=== PATIENT | female | born 2000 | race Hispanic/Latino ===

== ENCOUNTER 2021-11-26 21:33 | Inpatient (IN) | payer OTHER, SELFPAY ==
[2021-11-26 22:25] VITALS: BMI 21.2
[2021-11-26] MEDS ORDERED: Carboprost 250 MCG/ML AMP IM PRN (23:12)
[2021-11-26] MEDS ORDERED: Promethazine HCl 25 MG/ML VIAL IM PRN (23:12)
[2021-11-26] MEDS ORDERED: Acetaminophen 500 MG TAB PO PRN (23:12)
[2021-11-26] MEDS ORDERED: hydrALAZINE 20 MG/ML VIAL SLOW IVP PRN (23:12)
[2021-11-26] MEDS ORDERED: Ondansetron PF 4 MG/2 ML Vial IVP PRN (23:12)
[2021-11-26] MEDS ORDERED: Lidocaine 1% (PF) 30 ML VIAL SC PRN (23:12)
[2021-11-26] MEDS ORDERED: Butorphanol Tartrate 1 MG/ML VIAL SLOW IVP PRN (23:12)
[2021-11-26] MEDS ORDERED: Misoprostol 200 MCG TAB PR PRN (23:12)
[2021-11-26] MEDS ORDERED: Diphenoxylate HCl/Atropine Tablet PO PRN (23:12)
[2021-11-26] MEDS ORDERED: Ibuprofen 800 MG TAB PO PRN (23:12)
[2021-11-26] MEDS ORDERED: Methylergonovine 0.2 MG/ML VIAL IM PRN (23:12)
[2021-11-26] MEDS ORDERED: NS w/ Oxytocin 30 units 500 ML IV SCH (23:30)
[2021-11-26] MEDS ORDERED: NS w/ Oxytocin 30 units 500 ML IVPB SCH (23:30)
[2021-11-26 23:42] LABS: Hemoglobin 10.2 g/dL (12.0-15.5); Mean Corpuscular HGB CONC 32.1 g/dL (32.0-36.0); Mean Corpuscular Hemoglobin 27.1 pg (27.0-33.0); Mean Corpuscular Volume 84.4 fl (81.6-98.3); Platelet Count 167 10x3/uL (150-450); RBC Distribution Width 13.1 % (11.5-14.5); Red Blood Cell (RBC) Count 3.77 10x6/uL (3.90-5.03); White Blood Cell (WBC) Count 11.1 10x3/uL (3.5-10.5)
[2021-11-26] MEDS: Lactated Ringer's 1,000 ML IV SCH (23:45)
[2021-11-27 00:10] LABS: HBSAg Index 0.17 S/CO (0-0.99); Hep B Surf Ag Non-Reactive S/CO (NonReactive); Syphilis Antibody Nonreactive (Nonreactive); Syphilis Antibody Index 0.05 S/CO (<1.00 Non-Reactive)
[2021-11-27] MEDS: Lactated Ringer's 1,000 ML IV SCH ×2 (04:01→06:43)
[2021-11-27] MEDS ORDERED: Fentanyl 2 mcg/Bup 0.1% Cadd 100 ML ONE ×2 (05:14→13:40)
[2021-11-27 05:23] LABS: SARS-CoV-2 NAA Rapid Test Not Detected (NotDetected)
[2021-11-27] MEDS ORDERED: diphenhydrAMINE 50 MG/ML VIAL IVP PRN (06:06)
[2021-11-27] MEDS ORDERED: Promethazine HCl 25 MG/ML VIAL IM PRN (06:06)
[2021-11-27] MEDS ORDERED: Hydrocerin (Eucerin) Cream 120 gm Jar TOP PRN (06:06)
[2021-11-27] MEDS ORDERED: ePHEDrine Sulfate 50 MG/10 ML VIAL SLOW IVP PRN (06:06)
[2021-11-27] MEDS ORDERED: Naloxone HCl 0.4 mg/ml Vial IVP PRN ×2 (06:06)
[2021-11-27] MEDS ORDERED: Lactated Ringer's 500 ML IV PRN (06:06)
[2021-11-27] MEDS ORDERED: Acetaminophen 325 MG TAB PO PRN (06:06)
[2021-11-27] MEDS ORDERED: Ondansetron PF 4 MG/2 ML Vial IVP PRN (06:06)
[2021-11-27] MEDS ORDERED: Fentanyl 2 mcg/Bupivacaine 0.1% Cassette 100 ML EPIDURAL SCH (06:15)
[2021-11-27] MEDS ORDERED: Communication Order-Pharmacy FS SCH (06:15)
[2021-11-27] MEDS ORDERED: Preparation H Ointment 28 GM TUBE PR PRN (17:35)
[2021-11-27] MEDS ORDERED: Bisacodyl 10 MG SUPP PR PRN (17:35)
[2021-11-27] MEDS ORDERED: Boostrix 0.5 ML (Tdap) VIAL IM ONE (17:35)
[2021-11-27] MEDS ORDERED: diphenhydrAMINE 25 MG CAP PO PRN (17:35)
[2021-11-27] MEDS ORDERED: Milk Of Magnesia 30 ML UDCUP PO PRN (17:35)
[2021-11-27] MEDS ORDERED: Lanolin Ointment 7 GM TUBE TOP PRN (17:35)
[2021-11-27] MEDS ORDERED: HYDROcodone/Acetaminophen 5/325 mg Tablet PO PRN (17:35)
[2021-11-27] MEDS ORDERED: Benzocaine-Menthol 82.5 ML CAN TOP PRN (17:35)
[2021-11-27] MEDS ORDERED: Ibuprofen 600 MG TAB PO SCH (18:00)
[2021-11-27] MEDS ORDERED: NS w/ Oxytocin 30 units 500 ML ONE (18:08)
[2021-11-27] MEDS: Docusate Calcium (SURFAK) 240 MG CAP PO SCH (21:25)
[2021-11-27] MEDS: Ibuprofen 600 MG TAB PO SCH (21:25)
[2021-11-28] MEDS: Ibuprofen 600 MG TAB PO SCH ×4 (04:59→21:20)
[2021-11-28] MEDS: Ferrous Sulfate 325 MG TAB PO SCH ×2 (08:36→15:25)
[2021-11-28] MEDS: Prenatal Vitamin 1 TAB PO SCH (08:43)
[2021-11-28] MEDS: Docusate Calcium (SURFAK) 240 MG CAP PO SCH ×2 (08:43→21:20)
[2021-11-29] MEDS: Ibuprofen 600 MG TAB PO SCH ×3 (05:00→18:37)
[2021-11-29] MEDS: Docusate Calcium (SURFAK) 240 MG CAP PO SCH (10:32)
[2021-11-29] MEDS: Prenatal Vitamin 1 TAB PO SCH (10:32)
[2021-11-29] MEDS: Ferrous Sulfate 325 MG TAB PO SCH ×2 (10:33→18:38)
[2021-11-29 23:00] VITALS: BP 114/59; TEMP 98.1
== END 2021-11-29 23:30 | disposition home or self-care (01) | DRG 807 ==
LOC: CSHLD 21:33 → CSHPP 11-27 18:40
PROVIDERS: ADMIT Student in an Organized Health Care Education/Training Program; ATTEND Student in an Organized Health Care Education/Training Program
PROC: 10E0XZZ Delivery of Products of Conception, External Approach (ICD-10-PCS; principal; 2021-11-27)
PROC: 10907ZC Drainage of Amniotic Fluid, Therapeutic from Products of Conception, Via Natural or Artificial Opening (ICD-10-PCS; 2021-11-27)
PROC: 3E0P7VZ Introduction of Hormone into Female Reproductive, Via Natural or Artificial Opening (ICD-10-PCS; 2021-11-27)
PROC: 3E033VJ Introduction of Other Hormone into Peripheral Vein, Percutaneous Approach (ICD-10-PCS; 2021-11-27)
DX: O41.03X0 Oligohydramnios, third trimester, not applicable or unspecified (principal); Z37.0 Single live birth; Z20.822 Contact with and (suspected) exposure to COVID-19; Z3A.37 37 weeks gestation of pregnancy; O36.5930 Maternal care for other known or suspected poor fetal growth, third trimester, not applicable or unspecified; R63.6 Underweight; O75.89 Other specified complications of labor and delivery
CPT/HCPCS: 36415; 51702; 85027; 86780; 86850; 86900; 86901; 87340; J0595; J2590; J7120; U0002

== ENCOUNTER 2021-12-10 19:40 | Inpatient (IN) | payer MEDICAID, SELFPAY ==
[2021-12-10] MEDS ORDERED: Morphine 4 MG/ML VIAL ONE ×3 (20:42→22:27)
[2021-12-10 20:53] LABS: Hemoglobin 11.4 g/dL (12.0-15.5); Mean Corpuscular HGB CONC 30.9 g/dL (32.0-36.0); Mean Corpuscular Hemoglobin 26.7 pg (27.0-33.0); Mean Corpuscular Volume 86.4 fl (81.6-98.3); Mean Platelet Volume 11.3 fl (7.4-10.4); Platelet Count 664 10x3/uL (150-450); RBC Distribution Width 13.6 % (11.5-14.5); Red Blood Cell (RBC) Count 4.27 10x6/uL (3.90-5.03); White Blood Cell (WBC) Count 21.5 10x3/uL (3.5-10.5)
[2021-12-10 21:04] LABS: ALT (SGPT) 353 U/L (8-55); AST (SGOT) 351 U/L (5-34); Albumin 4.3 g/dL (3.5-5.0); Alkaline Phosphatase 788 U/L (40-110); Anion Gap 17 mmol/L (10-20); BUN (Urea Nitrogen) 7 mg/dL (7.0-18.7); Bilirubin, Total 0.6 mg/dL (0.2-1.2); Calc. Creatinine Clearance 0 mL/min (70-130); Calcium 9.5 mg/dL (7.8-10.44); Carbon Dioxide 25 mmol/L (22-29); Chloride 104 mmol/L (98-107); Glucose 184 mg/dL (70-105); Potassium 4.1 mmol/L (3.5-5.1); Protein, Total 8.3 g/dL (6.0-8.3); Sodium 142 mmol/L (136-145)
[2021-12-10 21:17] LABS: MDiff Complete? YES; Manual Diff?? YES
[2021-12-10 21:30] LABS: Band 8 % (5-11); Eosinophils 1 % (0-10); Lipase 15532 U/L (8-78); Lymphocytes 10 % (21-51); Monocytes 3 % (0-10); Neutrophil 77 % (42-75); Reactive Lymphocytes 1 % (0-10)
[2021-12-10 21:31] LABS: Platelet Morphology Comment Appears Increased
[2021-12-10 21:32] LABS: Toxic Granulation SLIGHT
[2021-12-10] MEDS ORDERED: Ondansetron PF 4 MG/2 ML Vial ONE (22:34)
[2021-12-10] MEDS ORDERED: Piperacillin/Tazobactam 3.375 GM VIAL ONE (23:07)
[2021-12-11] MEDS ORDERED: Piperacillin/Tazobactam 3.375 GM in Sodium Chloride 0.9% 100 ML IVPB SCH (00:15)
[2021-12-11 00:25] LABS: SARS-CoV-2 NAA Rapid Test DETECTED (NotDetected)
[2021-12-11] MEDS ORDERED: Lactated Ringer's 1,000 ML IV SCH (00:30)
[2021-12-11 00:50] VITALS: BMI 18.5
[2021-12-11 01:13] LABS: Magnesium 2.1 mg/dL (1.6-2.6)
[2021-12-11] MEDS: Lactated Ringer's 1,000 ML IV SCH ×4 (01:20→17:35)
[2021-12-11 04:37] LABS: ALT (SGPT) 220 U/L (8-55); AST (SGOT) 151 U/L (5-34); Albumin 3.2 g/dL (3.5-5.0); Alkaline Phosphatase 541 U/L (40-110); Anion Gap 13 mmol/L (10-20); BUN (Urea Nitrogen) 6 mg/dL (7.0-18.7); Bilirubin, Total 0.5 mg/dL (0.2-1.2); Calc. Creatinine Clearance 106 mL/min (70-130); Calcium 8.6 mg/dL (7.8-10.44); Carbon Dioxide 23 mmol/L (22-29); Chloride 107 mmol/L (98-107); Globulin 3.6 g/dL (2.4-3.5); Glucose 136 mg/dL (70-105); Potassium 4.2 mmol/L (3.5-5.1); Protein, Total 6.8 g/dL (6.0-8.3); Sodium 139 mmol/L (136-145)
[2021-12-11 04:52] LABS: Lipase 3324 U/L (8-78)
[2021-12-11 04:58] LABS: Hemoglobin 10.7 g/dL (12.0-15.5); Mean Corpuscular HGB CONC 31.8 g/dL (32.0-36.0); Mean Corpuscular Hemoglobin 26.9 pg (27.0-33.0); Mean Corpuscular Volume 84.7 fl (81.6-98.3); Mean Platelet Volume 11.3 fl (7.4-10.4); Platelet Count 520 10x3/uL (150-450); RBC Distribution Width 13.7 % (11.5-14.5); Red Blood Cell (RBC) Count 3.98 10x6/uL (3.90-5.03); White Blood Cell (WBC) Count 23.3 10x3/uL (3.5-10.5)
[2021-12-11 05:43] LABS: MDiff Complete? YES; Manual Diff?? YES
[2021-12-11 05:46] LABS: Band 17 % (5-11); Lymphocytes 1 % (21-51); Metamyelocyte 1 % (0-0); Monocytes 3 % (0-10); Neutrophil 78 % (42-75)
[2021-12-11] MEDS: Piperacillin/Tazobactam 3.375 GM in Sodium Chloride 0.9% 100 ML IVPB SCH ×3 (05:46→20:24)
[2021-12-11 05:47] LABS: Giant Platelets SLIGHT
[2021-12-11] MEDS: Morphine 4 MG/ML VIAL SLOW IVP PRN (07:35)
[2021-12-11] MEDS: Enoxaparin Sodium 40 MG/0.4 ML SYRINGE SC SCH (09:43)
[2021-12-11] MEDS ORDERED: Ketorolac Tromethamine 30 MG/ML VIAL IVP SCH (10:00)
[2021-12-11] MEDS ORDERED: Ondansetron PF 4 MG/2 ML Vial IVP PRN (11:55)
[2021-12-11] MEDS ORDERED: Indomethacin 50 MG SUPP ONE (14:33)
[2021-12-11] MEDS ORDERED: Iopamidol 15 ML ONE (14:33)
[2021-12-11] MEDS ORDERED: Lidocaine 1% PF 5 ML VIAL ONE (15:03)
[2021-12-11] MEDS ORDERED: Ondansetron PF 4 MG/2 ML Vial ONE (15:03)
[2021-12-11] MEDS ORDERED: Succinylcholine 200 MG/10 ml SYRINGE FS ONE (15:03)
[2021-12-11] MEDS ORDERED: Fentanyl 100 MCG/2 ML VIAL ONE (15:03)
[2021-12-11] MEDS ORDERED: Dexamethasone 4 mg/ml Vial ONE (15:03)
[2021-12-11] MEDS ORDERED: PROPOFOL 20 ML ONE (15:03)
[2021-12-12] MEDS: Piperacillin/Tazobactam 3.375 GM in Sodium Chloride 0.9% 100 ML IVPB SCH ×3 (04:40→20:50)
[2021-12-12 05:06] LABS: #Eosinphils 0.1 10x3/uL (0.0-0.5); #Monocytes 0.9 10x3/uL (0.0-1.1); #Neutrophils 10.9 10x3/uL (1.5-8.4); %Basophils 0.1 % (0.0-2.0); %Eosinophils 0.4 % (0.0-6.0); %Lymphocytes 12.7 % (18.0-47.0); %Monocytes 6.4 % (0.0-10.0); %Neutrophils 79.9 % (40.0-75.0); Hemoglobin 8.4 g/dL (12.0-15.5); Mean Corpuscular HGB CONC 31.3 g/dL (32.0-36.0); Mean Corpuscular Hemoglobin 26.6 pg (27.0-33.0); Mean Corpuscular Volume 84.8 fl (81.6-98.3); Mean Platelet Volume 11.2 fl (7.4-10.4); Platelet Count 424 10x3/uL (150-450); RBC Distribution Width 13.8 % (11.5-14.5); Red Blood Cell (RBC) Count 3.16 10x6/uL (3.90-5.03); White Blood Cell (WBC) Count 13.7 10x3/uL (3.5-10.5)
[2021-12-12 05:25] LABS: ALT (SGPT) 103 U/L (8-55); AST (SGOT) 40 U/L (5-34); Albumin 2.7 g/dL (3.5-5.0); Alkaline Phosphatase 365 U/L (40-110); Anion Gap 13 mmol/L (10-20); BUN (Urea Nitrogen) 4 mg/dL (7.0-18.7); Bilirubin, Total 0.4 mg/dL (0.2-1.2); CRP (Inflammatory) 8.93 mg/dL (= or < 0.5); Calc. Creatinine Clearance 112 mL/min (70-130); Carbon Dioxide 24 mmol/L (22-29); Chloride 107 mmol/L (98-107); Globulin 2.7 g/dL (2.4-3.5); Glucose 90 mg/dL (70-105); Potassium 3.7 mmol/L (3.5-5.1); Protein, Total 5.4 g/dL (6.0-8.3); Sodium 140 mmol/L (136-145)
[2021-12-12] MEDS: Lactated Ringer's 1,000 ML IV SCH ×4 (06:43→18:16)
[2021-12-12] MEDS ORDERED: Fentanyl 250 MCG/5 ML VIAL ONE (08:43)
[2021-12-12] MEDS ORDERED: PROPOFOL 20 ML ONE (08:44)
[2021-12-12] MEDS ORDERED: Rocuronium Bromide 10 MG/ML (10ML VIAL) ONE (08:48)
[2021-12-12] MEDS ORDERED: Dexamethasone 4 mg/ml Vial ONE ×2 (09:11→09:24)
[2021-12-12] MEDS ORDERED: Ondansetron PF 4 MG/2 ML Vial ONE (09:11)
[2021-12-12] MEDS ORDERED: Ketorolac Tromethamine 15 MG/ML VIAL ONE (09:12)
[2021-12-12] MEDS ORDERED: Glycopyrrolate 0.2 MG/ML 5 ML SYRINGE ONE (09:59)
[2021-12-12] MEDS ORDERED: Fentanyl 100 MCG/2 ML VIAL ONE (10:19)
[2021-12-12] MEDS ORDERED: Bupivacaine HCl 0.5%/Epinephrine 1:200,000/PF 30 ml Vial ONE (11:11)
[2021-12-12] MEDS: Enoxaparin Sodium 40 MG/0.4 ML SYRINGE SC SCH (12:56)
[2021-12-12] MEDS: Morphine 4 MG/ML VIAL SLOW IVP PRN ×2 (14:01→18:17)
[2021-12-13] MEDS: Morphine 4 MG/ML VIAL SLOW IVP PRN ×2 (01:11→09:22)
[2021-12-13] MEDS: Lactated Ringer's 1,000 ML IV SCH ×3 (01:11→22:01)
[2021-12-13] MEDS: Piperacillin/Tazobactam 3.375 GM in Sodium Chloride 0.9% 100 ML IVPB SCH ×3 (04:04→22:01)
[2021-12-13 04:29] LABS: #Eosinphils 0.2 10x3/uL (0.0-0.5); #Monocytes 0.8 10x3/uL (0.0-1.1); #Neutrophils 9.6 10x3/uL (1.5-8.4); %Basophils 0.2 % (0.0-2.0); %Eosinophils 1.2 % (0.0-6.0); %Lymphocytes 16.8 % (18.0-47.0); %Monocytes 6.5 % (0.0-10.0); %Neutrophils 74.6 % (40.0-75.0); Hemoglobin 8.4 g/dL (12.0-15.5); Mean Corpuscular HGB CONC 30.7 g/dL (32.0-36.0); Mean Corpuscular Hemoglobin 26.3 pg (27.0-33.0); Mean Corpuscular Volume 85.6 fl (81.6-98.3); Mean Platelet Volume 11.1 fl (7.4-10.4); Platelet Count 434 10x3/uL (150-450); White Blood Cell (WBC) Count 12.9 10x3/uL (3.5-10.5)
[2021-12-13 04:45] LABS: ALT (SGPT) 84 U/L (8-55); AST (SGOT) 40 U/L (5-34); Albumin 2.7 g/dL (3.5-5.0); Alkaline Phosphatase 295 U/L (40-110); Anion Gap 11 mmol/L (10-20); BUN (Urea Nitrogen) Less than 4 mg/dL (7.0-18.7); Bilirubin, Total 0.3 mg/dL (0.2-1.2); Calc. Creatinine Clearance 101 mL/min (70-130); Calcium 8.2 mg/dL (7.8-10.44); Carbon Dioxide 26 mmol/L (22-29); Chloride 107 mmol/L (98-107); Globulin 2.9 g/dL (2.4-3.5); Glucose 96 mg/dL (70-105); Lipase 952 U/L (8-78); Potassium 3.1 mmol/L (3.5-5.1); Protein, Total 5.6 g/dL (6.0-8.3); Sodium 141 mmol/L (136-145)
[2021-12-13] MEDS ORDERED: Potassium Chloride 20 MEQ TAB PO SCH (07:30)
[2021-12-13] MEDS: Enoxaparin Sodium 40 MG/0.4 ML SYRINGE SC SCH (09:22)
[2021-12-14] MEDS: Piperacillin/Tazobactam 3.375 GM in Sodium Chloride 0.9% 100 ML IVPB SCH (05:08)
[2021-12-14 05:31] LABS: ALT (SGPT) 64 U/L (8-55); AST (SGOT) 29 U/L (5-34); Albumin 2.8 g/dL (3.5-5.0); Alkaline Phosphatase 249 U/L (40-110); Anion Gap 12 mmol/L (10-20); BUN (Urea Nitrogen) Less than 4 mg/dL (7.0-18.7); Bilirubin, Total 0.4 mg/dL (0.2-1.2); Calc. Creatinine Clearance 108 mL/min (70-130); Calcium 8.4 mg/dL (7.8-10.44); Carbon Dioxide 26 mmol/L (22-29); Chloride 105 mmol/L (98-107); Globulin 2.8 g/dL (2.4-3.5); Glucose 91 mg/dL (70-105); Lipase 513 U/L (8-78); Magnesium 1.7 mg/dL (1.6-2.6); Phosphorus 3.9 mg/dL (2.3-4.7); Potassium 3.7 mmol/L (3.5-5.1); Protein, Total 5.6 g/dL (6.0-8.3); Sodium 139 mmol/L (136-145)
[2021-12-14] MEDS: Lactated Ringer's 1,000 ML IV SCH (05:32)
[2021-12-14 05:45] LABS: #Eosinphils 0.3 10x3/uL (0.0-0.5); #Monocytes 0.8 10x3/uL (0.0-1.1); #Neutrophils 9.2 10x3/uL (1.5-8.4); %Basophils 0.2 % (0.0-2.0); %Eosinophils 2.1 % (0.0-6.0); %Lymphocytes 14.7 % (18.0-47.0); %Monocytes 6.4 % (0.0-10.0); %Neutrophils 75.9 % (40.0-75.0); Hemoglobin 8.3 g/dL (12.0-15.5); Mean Corpuscular HGB CONC 31.2 g/dL (32.0-36.0); Mean Corpuscular Hemoglobin 26.3 pg (27.0-33.0); Mean Corpuscular Volume 84.2 fl (81.6-98.3); Mean Platelet Volume 10.8 fl (7.4-10.4); Platelet Count 445 10x3/uL (150-450); RBC Distribution Width 13.9 % (11.5-14.5); Red Blood Cell (RBC) Count 3.16 10x6/uL (3.90-5.03); White Blood Cell (WBC) Count 12.2 10x3/uL (3.5-10.5)
[2021-12-14] MEDS ORDERED: Calcium Carbonate 500 MG ChewTAB PO PRN (07:13)
[2021-12-14] MEDS ORDERED: Loperamide HCl 2 MG CAP PO PRN (07:13)
[2021-12-14] MEDS ORDERED: Loratadine 10 MG TAB PO PRN (07:13)
[2021-12-14] MEDS ORDERED: Bisacodyl 5 MG TAB PO PRN (07:13)
[2021-12-14] MEDS ORDERED: Zolpidem Tartrate 5 MG TAB PO PRN (07:13)
[2021-12-14] MEDS ORDERED: GUAIFENESIN SF SOLN 200 MG/10 ML UDCUP PO PRN (07:13)
[2021-12-14] MEDS ORDERED: Cepastat Lozenges 1 LOZ PO PRN (07:13)
[2021-12-14] MEDS ORDERED: Senokot S 8.6-50 MG TAB PO PRN (07:13)
[2021-12-14] MEDS ORDERED: Ibuprofen 200 MG TAB PO PRN ×2 (07:13→08:23)
[2021-12-14] MEDS ORDERED: Ondansetron ODT 4 MG TAB PO PRN (07:13)
[2021-12-14] MEDS ORDERED: Sodium Chloride 0.65% Nasal 44 ML BOT EA NARE PRN (07:13)
[2021-12-14] MEDS ORDERED: HYDROcodone/Acetaminophen 5/325 mg Tablet PO PRN (07:13)
[2021-12-14] MEDS ORDERED: hydrALAZINE 20 MG/ML VIAL SLOW IVP PRN (07:13)
[2021-12-14] MEDS ORDERED: Acetaminophen 325 MG TAB PO PRN (08:16)
[2021-12-14] MEDS ORDERED: traMADol HCl 50 MG TAB PO PRN ×2 (08:16)
[2021-12-14] MEDS: Enoxaparin Sodium 40 MG/0.4 ML SYRINGE SC SCH (11:00)
[2021-12-14 12:39] VITALS: BP 112/75; TEMP 99
== END 2021-12-14 14:38 | disposition home or self-care (01) | DRG 769 ==
LOC: CSHERS 19:40 → CSHTELE 23:56 → OBSVTOIN 12-11 11:52
PROVIDERS: ADMIT Family Medicine; ATTEND Internal Medicine
PROC: 8E0ZXY6 Isolation (ICD-10-PCS; 2021-12-11)
PROC: 0F798ZZ Dilation of Common Bile Duct, Via Natural or Artificial Opening Endoscopic (ICD-10-PCS; 2021-12-11)
PROC: 0DJ08ZZ Inspection of Upper Intestinal Tract, Via Natural or Artificial Opening Endoscopic (ICD-10-PCS; 2021-12-11)
PROC: 0FT44ZZ Resection of Gallbladder, Percutaneous Endoscopic Approach (ICD-10-PCS; principal; 2021-12-12)
DX: O99.63 Diseases of the digestive system complicating the puerperium (principal); U07.1 COVID-19; K85.10 Biliary acute pancreatitis without necrosis or infection; O98.53 Other viral diseases complicating the puerperium; K80.10 Calculus of gallbladder with chronic cholecystitis without obstruction; K83.8 Other specified diseases of biliary tract; O85 Puerperal sepsis; R74.01 Elevation of levels of liver transaminase levels; O99.893 Other specified diseases and conditions complicating puerperium; Z79.899 Other long term (current) drug therapy
CPT/HCPCS: 36415; 71045; 74330; 76705; 80053; 83605; 83690; 83735; 84100; 85025; 86140; 88304; 93005; 96372; 96375; 96376; C1713; G0378; J1100; J1650; J1885; J2270; J2405; J2543; J2704; J3010; J3490; J7120; Q9967; U0002